=== PATIENT | male | born 1975 | race Caucasian/White ===

== ENCOUNTER 2018-02-21 18:54 | Emergency (ER) | payer SELFPAY ==
[~2018-02-21] VITALS: Ht 165.1 cm; Wt 76.9 kg
[~2018-02-21 18:54] MED LIST: COLACE100 MG PO; KEFLEX500 MG PO; LAC PO; NORCO1 TA1 PO
[2018-02-21 19:03] VITALS: Ht 165.1 cm; Wt 76.9 kg
[2018-02-21 22:06] VITALS: BP 133/66
== END 2018-02-21 22:06 | disposition home or self-care (01) ==
LOC: ED 18:54
DX: H60.502 Unspecified acute noninfective otitis externa, left ear (principal); R03.0 Elevated blood-pressure reading, without diagnosis of hypertension